=== PATIENT | female | born 1975 | race Caucasian/White ===

== ENCOUNTER → 2017-04-20 | Outpatient (CLI) | payer BC ==
[~2017-04-20] MED LIST: CELEXA 20MG20 MG/TAB PO; PROAIR HFA0.09 MG/AC IH; WELLBUTRIN SR150 M1 PO
== END ==
LOC: COL.RAD 15:24
DX: K57.32 Diverticulitis of large intestine without perforation or abscess without bleeding (principal); R50.9 Fever, unspecified; Z90.710 Acquired absence of both cervix and uterus
CPT/HCPCS: J7050; Q9967

== ENCOUNTER → 2018-03-10 | Outpatient (CLI) | payer BC | LOC: COL.RAD 13:11 | DX: S06.0X0A Concussion without loss of consciousness, initial encounter (principal) ==

== ENCOUNTER 2021-10-25 12:22 | Observation (INO) | payer BC ==
[~2021-10-25] VITALS: Ht 167.6 cm; Wt 78.0 kg
[2021-10-25] MEDS ORDERED: WELLBUTRIN XL300 M1 PO (13:00)
[2021-10-25] MEDS ORDERED: NEURONTIN300 MG/CAP PO (13:00)
[2021-10-25] MEDS ORDERED: CELEXA10 MG PO (13:00)
[2021-10-25] MEDS ORDERED: IMITREX100 MG PO (13:01)
[2021-10-25 13:10] LABS: BASO % 0.6 % (0.0-2.0); EOS # 0.1 K/mm3 (0.0-0.7); EOS % 1.5 % (0.0-4.0); GRAN # 3.4 K/mm3 (1.4-6.5); GRAN % 65.2 % (42.2-75.2); HEMATOCRIT 38.7 % (37.0-47.0); HEMOGLOBIN 12.7 g/dl (12.5-16.0); LYMPH # 1.1 K/mm3 (1.2-3.4); LYMPH % 20.2 % (20.0-51.0); MEAN CELL VOLUME 92 fl (80.0-100.0); MEAN CORPUSCULAR HEMOGLOBIN 30 pg (27-31); MEAN CORPUSCULAR HGB CONC 33 g/dl (33.0-37.0); MEAN PLATELET VOLUME 10.4 fl (7.4-10.4); MONO # 0.6 K/mm3 (0.1-0.6); MONO % 12.3 % (1.7-9.3); PLATELET COUNT 297 K/mm3 (130-400); RED BLOOD COUNT 4.19 M/mm3 (4.10-5.30); REDCELL DISTRIBUTION WIDTH-CV 13.5 % (11.5-14.5)
[2021-10-25 13:28] LABS: ALBUMIN 3.6 gm/dL (3.5-5.0); CALCIUM 9.2 mg/dL (8.4-10.2); CREATININE, serum 0.74 mg/dL (0.57-1.11); POTASSIUM 4.2 mmol/L (3.5-4.5); TOTAL PROTEIN 7.3 gm/dL (6.2-8.1)
[2021-10-26] VITALS (10 sets, daily range): BP systolic 101–112; BP diastolic 57–75; PULSE 54–77; TEMP 98.6
[2021-10-26 08:46] LABS: ALBUMIN 3.4 gm/dL (3.5-5.0); BILIRUBIN,TOTAL 0.7 mg/dL (0.2-1.2); CALCIUM 8.5 mg/dL (8.4-10.2); CREATININE, serum 0.7 mg/dL (0.57-1.11); TOTAL PROTEIN 6.8 gm/dL (6.2-8.1)
--- NOTE | 2021-10-26 15:26 | NUR ---
SW met with pt after surgery to complete intake. Pt lives at home alone and is . Pt is independent on all ADLs and does not use any DMEs. Pt NK is her father, Homer [phone]. Pt PCP is yeni Aguillon and gets medications from [facility]. Pt not interested in [facility] at this time. DC: Home.
--- NOTE | 2021-10-26 18:31 | NUR ---
PT ARRIVED TO ROOM FROM PACU @ 1135, WAS DROWSY, RATED PAIN 5/10, WAS GIVEN ROXICODONE ET SCHEDULED TYLENOL FOR PAIN. PT SLEPT INTERMITTENTLY THIS AFTERNOON. PT IS NOW A&0 X3, HAS BEEN UP TO URINATE X2 WITH ASSISTANCE ET AMBULATED IN HALLWAY, TOLERATED WELL. PT IS NOW INDEPENDENT IN HER ROOM. PT HAD EATEN LUNCH, ATE 75% ET STATED THAT SHE REALLY DOESN'T HAVE AN APPETITE. PT EDUCATED ON FAT CONTROLLED DIET, DEMONSTARTES UNDERSTANDING. PT HAS 4 ABDOMINAL INCISIONS COVERED WITH BANDAIDS. INCISION BELOW UMBILICUS BEGAN OOZING SANGUINEOUS DRAINAGE AFTER AMBULATION, BAND-AID CHANGED.
--- NOTE | 2021-10-26 21:00 | NUR ---
PT IN BED. IS ALERT AND ORIENTED X4. HAS RFA INT, FLUSHES WITHOUT PROBLEM. ABD WITH ROBOTIC SITES X4, BANDAIDS D/I. PASSING FLATUS. TAKING SCHEDULED PAIN MEDS. AMBULATED IN HALLWAY ON OWN. VOIDING WITHOUT COMPLAINT. SCDS ON.
[2021-10-27 03:24] VITALS: BP 113/62; PULSE 57; TEMP 98.2
--- NOTE | 2021-10-27 04:45 | NUR ---
PT REPORTS ABD PAIN, MILD NAUSEA. MEDICATED WITH OXYCODONE 5MG PO NOW. PT OUT IN HALLWAY AMBULATING.
--- NOTE | 2021-10-27 06:57 | NUR ---
awake resting in bed, bedside shift report received from [facility]
[2021-10-27 07:12] LABS: ALBUMIN 3.6 gm/dL (3.5-5.0); BILIRUBIN,TOTAL 0.4 mg/dL (0.2-1.2); CALCIUM 9.2 mg/dL (8.4-10.2); CREATININE, serum 0.71 mg/dL (0.57-1.11); TOTAL PROTEIN 7.3 gm/dL (6.2-8.1)
[2021-10-27] MEDS ORDERED: PROAIR HFA0.09 MG/AC IH (07:32)
[2021-10-27] MEDS ORDERED: ROXICODONE 55 MG/TAB PO (07:33)
[2021-10-27 07:39] LABS: POTASSIUM 3.9 mmol/L (3.5-4.5)
[2021-10-27 07:55] VITALS: BP 115/70; PULSE 64; TEMP 97.9
--- NOTE | 2021-10-27 08:20 | NUR ---
resting in bed, has ordered breakfast, full assessment completed, see interventions for further info
--- NOTE | 2021-10-27 09:34 | NUR ---
Initial visit; Patient thanked [employer] for looking in on her and offering Blessings. Patient declined spiritual care at this time.
--- NOTE | 2021-10-27 10:05 | NUR ---
INT discontinued, assisted into shower
--- NOTE | 2021-10-27 10:45 | NUR ---
discharge instructions given to patient, verbalizes understanding
--- NOTE | 2021-10-27 10:49 | NUR ---
discharged ambulatory
== END 2021-10-27 10:49 | disposition home or self-care (01) ==
LOC: COL.ER 12:22 → SURG 16:02 → COL.ER 16:02 → SURG 16:02
PROVIDERS: Personal Emergency Response Attendant; ADMIT Surgery
DX: K80.12 Calculus of gallbladder with acute and chronic cholecystitis without obstruction (principal)
CPT/HCPCS: G0378; J0330; J0690; J1100; J1170; J1885; J1956; J2270; J2405; J2704; J3010; J7030; J7042; Q9967

== ENCOUNTER → 2023-08-25 | Outpatient (CLI) | payer BC ==
[~2023-08-25] MED LIST changes: +CELEXA10 MG PO; +IMITREX100 MG PO; +NEURONTIN300 MG/CAP PO; +ROXICODONE 55 MG/TAB PO; +WELLBUTRIN XL300 M1 PO
== END ==
LOC: MC.RAD 13:55
DX: Z12.31 Encounter for screening mammogram for malignant neoplasm of breast (principal)